=== PATIENT | female | born 1990 | race Caucasian/White ===

== ENCOUNTER → 2024-06-14 07:05 | Outpatient (REF) | payer SELFPAY | LOC: PNTC 07:05 | PROVIDERS: ATTENDING PHYSICIAN Obstetrics & Gynecology | DX: Z34.90 Encounter for supervision of normal pregnancy, unspecified, unspecified trimester (principal) | CPT/HCPCS: 76805 ==

== ENCOUNTER 2024-10-26 16:36 | Inpatient (IN) | payer OTHER, SELFPAY ==
[2024-10-26 16:57] VITALS: BP 111/52; BMI 28.3
[2024-10-26 18:11] LABS: % Basophils 0.3 % (0-2); % Eosinophils 0.4 % (0-6); % Immature Granulocytes 0.4 % (0-0.5); % Lymphocytes 13.7 % (20.5-51.1); % Monocytes 4.7 % (1.7-9.3); % Neutrophils 80.5 % (42.2-75.2); Absolute Eosinophils 0.1 10^3/uL (0-0.7); Absolute Immature Granulocytes 0.1 10^3/uL (0-0.05); Absolute Lymphocytes 2.1 10^3/uL (1.2-3.4); Absolute Monocytes 0.7 10^3/uL (0.1-0.6); Absolute Neutrophils 12.5 10^3/uL (1.4-6.5); Hematocrit 35.1 % (37.0-47.0); Hemoglobin 11.6 g/dL (12.0-16.0); Mean Corpuscular Hgb 28.1 pg (27.0-31.0); Mean Platelet Volume 11.6 fL (7.4-10.4); Nucleated Red Blood Cells % 0 %; Platelet Count 241 10^3/uL (130-400); Red Blood Cell Count 4.13 10^6/uL (4.20-5.40); Red Cell Dist. Width 14.1 % (11.5-14.5); White Blood Cell Count 15.6 10^3/uL (4.8-10.8)
[2024-10-26] MEDS: MOTRIN 600 MG PO (23:14)
[2024-10-26] MEDS: TYLENOL 650 MG PO (23:17)
[2024-10-26] MEDS: SENOKOT-S 1 TABLET PO (23:18)
[2024-10-27] MEDS: NON-FORMULARY ITEM 1 UNIT PO ×2 (00:18→11:26)
--- NOTE | 2024-10-27 04:00 | DOWNTIME ---
There was a [employer] Client Manager Case Downtime on 10/27/2024 from 0100 to 10/27/2024 at 0350. Downtime documentation of patient's care, including medication administrations, has been reconciled in the electronic record per guidelines. Refer to the
patient's paper chart under the miscellaneous tab to see printed paper medication records and downtime forms.
[2024-10-27 04:31] LABS: Hematocrit 31.5 % (37.0-47.0); Hemoglobin 10.7 g/dL (12.0-16.0)
[2024-10-27] MEDS: SENOKOT-S 1 TABLET PO (11:25)
[2024-10-27] MEDS: FEOSOL 325 MG PO (11:25)
[2024-10-27] MEDS: MOTRIN 600 MG PO ×2 (11:25→20:45)
[2024-10-27] MEDS: PRENATAL PLUS PO (11:26)
[2024-10-28] MEDS: NON-FORMULARY ITEM 1 UNIT PO ×2 (00:51→08:24)
[2024-10-28] MEDS: NON-FORMULARY ITEM PO (00:51)
[2024-10-28] MEDS: PRENATAL PLUS 1 TABLET PO (07:56)
[2024-10-28] MEDS: FEOSOL 325 MG PO (07:56)
[2024-10-28] MEDS: MOTRIN 600 MG PO (08:00)
[2024-10-28] MEDS: SENOKOT-S 1 TABLET PO (08:01)
[2024-10-29 14:11] LABS: Syphilis/T. pallidum Ab Reflex Negative (Negative)
== END 2024-10-28 12:42 | disposition home or self-care (01) | DRG 806 ==
LOC: LDRP 16:36
PROVIDERS: ADMITTING PHYSICIAN Obstetrics & Gynecology; FAMILY PHYSICIAN Nurse Practitioner Adult Health
PROC: 10E0XZZ Delivery of Products of Conception, External Approach (ICD-10-PCS; 2024-10-27)
PROC: 0KQM0ZZ Repair Perineum Muscle, Open Approach (ICD-10-PCS; 2024-10-27)
PROC: 4A1HXCZ Monitoring of Products of Conception, Cardiac Rate, External Approach (ICD-10-PCS; 2024-10-27)
DX: O48.0 Post-term pregnancy (principal); O99.354 Diseases of the nervous system complicating childbirth; Z37.0 Single live birth; O69.81X0 Labor and delivery complicated by cord around neck, without compression, not applicable or unspecified; Z3A.40 40 weeks gestation of pregnancy; O70.1 Second degree perineal laceration during delivery; G43.909 Migraine, unspecified, not intractable, without status migrainosus; O99.62 Diseases of the digestive system complicating childbirth; K21.9 Gastro-esophageal reflux disease without esophagitis; Z88.1 Allergy status to other antibiotic agents; Z88.2 Allergy status to sulfonamides
CPT/HCPCS: 36415; 85014; 85018; 85025; 86780; 86850; 86900; 86901